=== PATIENT | male | born 1955 | race Caucasian/White ===

== ENCOUNTER 2017-07-15 09:37 | Outpatient (CLI) | payer OTHER | END 2017-07-15 15:47 | disposition home or self-care (01) | LOC: HPC 09:37 | DX: K44.9 Diaphragmatic hernia without obstruction or gangrene (principal); K21.9 Gastro-esophageal reflux disease without esophagitis; Z80.8 Family history of malignant neoplasm of other organs or systems; Z87.891 Personal history of nicotine dependence | CPT/HCPCS: G0463 ==